=== PATIENT | female | born 1980 | race Caucasian/White ===

== ENCOUNTER 2020-11-10 16:48 | Emergency (ER) | payer SELFPAY ==
[2020-11-10 17:14] VITALS: BP 111/83; PULSE 98; RESP 18; TEMP 36.9; O2SAT 91; BMI 15.7
--- NOTE | 2020-11-10 17:22 | XRR_ITS ---
PROCEDURE INFORMATION: Exam: XR Chest Exam date and time: 11/10/2020 5:22 PM Age: 40 years old Clinical indication: Cough and shortness of breath; Additional info: Covid +. SOB TECHNIQUE: Imaging protocol: XR of the chest. Views: 1 view. Total images: 1 COMPARISON: No relevant prior studies available. FINDINGS: Lungs: Subtle small patche of ground-glass interstitial lung disease right lung base which could reflect active interstitial pneumonitis. Pleural spaces: Unremarkable. No pleural effusion. No pneumothorax. Heart/Mediastinum: Unremarkable. No cardiomegaly. Bones/joints: Unremarkable. XR/XR chest 1V portable [id number] IMPRESSION: Subtle small patche of ground-glass interstitial lung disease right lung base which could reflect active interstitial pneumonitis.
--- NOTE | 2020-11-10 17:33 | W.ED.COVID ---
HPI - COVID General: Chief Complaint: COVID symptoms Stated Complaint: COVID Time Seen by Provider: 11/10/20 17:22 Triage information: Has fever, cough or shortness of breath. Exposure to COVID + person last 14 days History of Present Illness: HPI Narrative: Pt tested positive at [facility] today, sent via ambulance. Supposedly oxygen sats dropped significantly low. Patient's symptoms 4 days ago. Patient not complaining about shortness of breath. has had a cough and she has a history of chronic bronchitis. Patient is a smoker. 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 Patient states she does feel the short of breath with exertion but that is nothing new for her. Patient denies any fever has had body aches loss of taste and smell. MD complaint: known COVID positive Prior covid testing: yes, results known Prior testing date: 11/10/20 COVID 19 common symptoms: positive non-productive cough, body aches and loss of sense of smell and/or taste; negative headache(s), throat pain, nasal congestion, nausea or vomiting COVID 19 other sytmptoms: negative chest pain Onset (ago): day(s) Severity: mild Pertinent comorbid conditions: COPD/respiratory disease Treatment prior to arrival: none COVID Results: No Data to Display Review of Systems Const: Reports: body aches Eyes: Denies: change in vision or blurry vision ENMT: Denies: throat pain or nasal congestion Card: Denies: chest pain or dyspnea on exertion Resp: Reports: non-productive cough GI: Denies: abdominal pain, nausea or vomiting Musc: Denies: extremity pain Skin/Breast: Denies: rash Neuro: Denies: headache(s) Psych: Denies: anxiety or depression Pedro/Lymph: Denies: easy bruising [facility] Female Reproductive History: Date of last menstrual period: 10/02/20 Physical Exam Const: COMMON NORMALS: no acute distress, average body habitus and patient oriented x3 HENMT: COMMON NORMALS: normocephalic HEAD & SCALP: normal to inspection and normocephalic FACE & SINUS: normal facial exam Eye: COMMON NORMALS: conjunctivae normal GENERAL EYE: appearance normal, both eyes and all related structures CONJUNCTIVA: Yes conjunctivae normal Neck/C-Spine: COMMON NORMALS: no JVD Chest: COMMONS NORMALS: normal inspection of the chest Resp: COMMON NORMALS: normal respiratory effort and clear to auscultation bilaterally AUSCULTATION: clear to auscultation bilaterally Cardio: COMMON NORMALS: no JVD, regular rate and regular rhythm RATE: regular rate RHYTHM: regular rhythm GI: COMMON NORMALS: Normal to inspection, nondistended, normoactive bowel sounds present Extremity: COMMON NORMALS: normal to inspection and full ROM Neuro: COMMON NORMALS: patient oriented x3 Course Vital Signs: Vital signs: Vital Signs Temperature 98.4 F 11/10/20 17:14 Pulse Rate 101 H 11/10/20 18:54 Respiratory Rate 18 11/10/20 17:14 Blood Pressure 105/73 11/10/20 18:54 Pulse Oximetry 98 11/10/20 18:58 MDM - COVID MDM Narrative: Medical decision making narrative: After in-depth discussion with patient she admits to being insatiable thirst for over a year. Says she urinates a lot. Is hungry a lot. Patient instructed on proper diabetic diet and given instructions. Instructed to follow-up with her primary care provider next 7 days. She was given enough Metformin for 7 days. Also instructed by glucose meter and start checking her sugars twice a day. Patient some oxygen level stayed up 9790% throughout the whole stay on room air. Patient instructed on taking care of her new onset diabetes. Patient responded well to IV insulin. Patient did have a snack of crackers and sugar-free chocolate pudding here in the ER. All questions answered and patient directed follow-up with your primary care provider in less than a week. Lab Data: Labs: Lab Results 11/10/20 11/10/20 11/10/20 18:07 18:07 20:52 WBC 8.5 10^3/uL 10^3/ uL (4.0-10.0) RBC 4.62 10^6/uL 10^6 /uL (4.1-5.3) Hgb 14.4 g/dL g/dL (11.5-15.3) Hct 42.0 % % (37.0-47.0) MCV 90.9 fl fl (81-99) MCH 31.2 pg pg (28.0-34.0) MCHC 34.3 g/dL g/dL (30.0-36.0) RDW 12.0 % L % (12.1-15.1) Plt Count 251 10^3/cmm 10^3 /cmm (130-400) MPV 10.4 fL fL (7.4-10.4) Neut % (Auto) 77.4 % % Lymph % (Auto) 16.0 % % Coke % (Auto) 5.5 % % Eos % (Auto) 0.0 % % Baso % (Auto) 0.2 % % Neut # (Auto) 6.58 10^3/uL 10^3 /uL (1.8-7.7) Lymph # (Auto) 1.4 10^3/uL 10^3/ uL (0.8-4.8) Coke # (Auto) 0.5 10^3/uL 10^3/ uL (0.2-0.9) Eos # (Auto) 0.0 10^3/uL 10^3/ uL (0.0-0.8) Baso # (Auto) 0.0 10^3/uL 10^3/ uL (0.0-0.1) Nucleated RBC % (a uto) 0 % % Nucleated RBCs # 0.0 /100WBC /100W BC Sodium 127 mmol/L L mmol /L (136-145) Potassium 4.0 mmol/L mmol/L (3.5-5.1) Chloride 87 mmol/L L mmol/ L (98-107) Carbon Dioxide 27 mmol/L mmol/L (22-29) Anion Gap 17.0 (5-19) BUN 8 mg/dL mg/dL (6-20) Creatinine 0.4 mg/dL L mg/dL (0.5-0.9) GFR Calculation 175.9 mL/min H mL /min (90-130) Glucose 352 mg/dL H mg/dL (65-115) POC Glucose 292 mg/dL H mg/dL (70-110) Calculated Osmolal ity 276 mOsm/kg L mOs m/kg (285-295) Calcium 8.4 mg/dL L mg/dL (8.5-10.5) Total Bilirubin 0.4 mg/dL mg/dL (0.15-1.2) AST 26 U/L U/L (0-32) ALT 25 U/L U/L (0-33) Alkaline Phosphata se 152 IU/L H IU/L (35-105) Total Protein 7.4 g/dL g/dL (6.6-8.7) Albumin 3.3 g/dL L g/dL (3.5-5.2) Globulin 4.1 g/dL g/dL (1.3-4.6) COVID Results: No Data to Display Discharge Plan Discharge Patient Disposition: Home Clinical Impression: COVID-19, Diabetes mellitus, new onset, Hyponatremia Condition: Stable Prescriptions: New metformin 500 mg tablet 500 mg PO BID Qty: 14 RF: 0 Zofran 4 mg tablet 4 mg PO Q8H 3 Days Qty: 9 RF: 0 Discharge Orders: Discharge ED (Routine); Ordered 11/10/20 Ordered By: Marco William Discharge Diet: Diabetic Discharge Activity: Increase activity as tolerated Patient Instructions: Diabetes and Diet, Diabetes Mellitus Type 2 in Adults (ED) Activity Restrictions/Additional Instructions: Follow-up with medical provider as directed. Take medications as prescribed. Return to the ER or your medical provider if condition worsens. Please read and understand discharge instructions. If any questions ask please. Follow-up with your primary care provider in the next 7 days. Make sure he stay on diabetic diet. Decrease breads potatoes starches carbohydrates and any sugar related food or drinks. Make sure you drink plenty of fluids. Buy a glucometer and check your blood sugars daily and bring those readings to your provider along with the a diary of your food and water and fluid intake over the next week. Coding Level of Care Code ED Sales Training Representative for Kiran Salazar Exam Comprehensive
[2020-11-10 18:17] LABS: Basophils % 0.2 %; Hemoglobin 14.4 g/dL (11.5-15.3); Lymphocytes # 1.4 10^3/uL (0.8-4.8); Mean Corpuscular HGB Conc 34.3 g/dL (30.0-36.0); Mean Corpuscular Hemoglobin 31.2 pg (28.0-34.0); Mean Corpuscular Volume 90.9 fl (81-99); Mean Platelet Volume 10.4 fL (7.4-10.4); Monocytes # 0.5 10^3/uL (0.2-0.9); Monocytes % 5.5 %; Neutrophils # 6.58 10^3/uL (1.8-7.7); Neutrophils % 77.4 %; Nucleated Red Blood Cells % 0 %; Platelet Count 251 10^3/cmm (130-400); Red Blood Count 4.62 10^6/uL (4.1-5.3); White Blood Count 8.5 10^3/uL (4.0-10.0)
[2020-11-10 18:54] VITALS: BP 105/73; PULSE 101; O2SAT 97
[2020-11-10 18:56] LABS: Alanine Aminotransferase 25 U/L (0-33); Albumin Level 3.3 g/dL (3.5-5.2); Alkaline Phosphatase 152 IU/L (35-105); Aspartate Amino Transferase 26 U/L (0-32); Blood Urea Nitrogen 8 mg/dL (6-20); Calcium 8.4 mg/dL (8.5-10.5); Carbon Dioxide 27 mmol/L (22-29); Chloride 87 mmol/L (98-107); Globulin 4.1 g/dL (1.3-4.6); Glomerular Filtration Rate 175.9 mL/min (90-130); Glucose 352 mg/dL (65-115); Osmolality Calculated 276 mOsm/kg (285-295); Sodium 127 mmol/L (136-145); Total Bilirubin 0.4 mg/dL (0.15-1.2); Total Protein 7.4 g/dL (6.6-8.7)
[2020-11-10 18:58] VITALS: O2SAT 98
[2020-11-10] MEDS: insulin regular-human 100 units/1 mL 10 UNIT IVP (19:38)
[2020-11-10] MEDS: sodium chloride 0.9% 1,000 ML 999 ML IV (19:39)
[2020-11-10 20:55] LABS: Glucose Point of Care 292 mg/dL (70-110)
[2020-11-10 21:00] VITALS: BP 102/64; PULSE 74; RESP 20; O2SAT 95
[2020-11-10 21:39] VITALS: BP 99/68; PULSE 72; RESP 22; O2SAT 94
[2020-11-10 21:41] VITALS: BP 99/68; PULSE 72; RESP 22; O2SAT 94
== END 2020-11-10 21:35 | disposition home or self-care (01) ==
PROVIDERS: Emergency Provider Nurse Practitioner Family
DX: U07.1 COVID-19 (principal); E11.9 Type 2 diabetes mellitus without complications; E87.1 Hypo-osmolality and hyponatremia
CPT/HCPCS: 36416; 71045; 80053; 82962; 85025; 96361; 96374; 99284; J1815; J7030